=== PATIENT | female | born 1985 | race Caucasian/White ===

== ENCOUNTER → 2017-10-14 | Emergency (ER) | payer OTHER ==
[~2017-10-14] VITALS: Ht 162.6 cm; Wt 75.3 kg
== END | disposition home or self-care (01) ==
LOC: ER 17:43
DX: G43.809 Other migraine, not intractable, without status migrainosus (principal); J32.8 Other chronic sinusitis

== ENCOUNTER → 2018-04-16 | Emergency (ER) | payer OTHER ==
[~2018-04-16] VITALS: Ht 162.6 cm; Wt 73.5 kg
== END | disposition home or self-care (01) ==
LOC: ER 18:34
DX: K29.70 Gastritis, unspecified, without bleeding (principal)

== ENCOUNTER 2020-05-16 23:46 | Emergency (ER) | payer OTHER ==
[~2020-05-16] VITALS: Ht 165.1 cm; Wt 79.4 kg
[2020-05-17] MEDS ORDERED: PYRIDIUM DS200 MG PO ×2 (03:24→03:25)
[2020-05-17] MEDS ORDERED: CIPRO500 MG PO (03:25)
== END 2020-05-17 06:20 | disposition home or self-care (01) ==
LOC: ER 23:46
DX: N39.0 Urinary tract infection, site not specified (principal); R10.2 Pelvic and perineal pain

== ENCOUNTER 2020-05-19 23:29 | Emergency (ER) | payer OTHER ==
[~2020-05-19] VITALS: Ht 162.6 cm; Wt 74.8 kg
[~2020-05-19 23:29] MED LIST: CIPRO500 MG PO; PYRIDIUM DS200 MG PO
== END 2020-05-20 11:43 | disposition home or self-care (01) ==
LOC: ER 23:29
DX: N39.0 Urinary tract infection, site not specified (principal); R10.11 Right upper quadrant pain; Z03.818 Encounter for observation for suspected exposure to other biological agents ruled out